=== PATIENT | male | born 1950 | race Caucasian/White ===

== ENCOUNTER 2016-08-18 14:31 | Inpatient (IN) | payer OTHER ==
[~2016-08-18] VITALS: Ht 170.2 cm; Wt 88.6 kg
[2016-08-18 15:33] LABS: HEMOGLOBIN 17.3 gm/dl (14.0-17.5); RED BLOOD COUNT 5.95 M/UL (4.20-5.50); WHITE BLOOD COUNT 23.4 K/UL (4.5-11.0)
[2016-08-18 15:56] LABS: BUN/CREATININE RATIO 18 (0-10)
[2016-08-18] MEDS ORDERED: ANTIVERT 25MG T25 MG PO (22:26)
[2016-08-19 04:16] LABS: HEMOGLOBIN 14.5 gm/dl (14.0-17.5); RED BLOOD COUNT 5.02 M/UL (4.20-5.50); WHITE BLOOD COUNT 11.4 K/UL (4.5-11.0)
[2016-08-19 04:52] LABS: BUN/CREATININE RATIO 21 (0-10)
[2016-08-19] MEDS ORDERED: PROTONIX20 MG PO (17:08)
[2016-08-19] MEDS ORDERED: ALUMINUM H320 MG/5 M PO (17:11)
== END 2016-08-19 17:40 | disposition home or self-care (01) | DRG 189 ==
LOC: ER1 14:31 → MED SURG 4 20:25 → ZEROF 20:25 → MED SURG 4 22:00
PROVIDERS: Emergency Medicine; ADMIT Internal Medicine
DX: J96.01 Acute respiratory failure with hypoxia (principal); J98.11 Atelectasis; K29.00 Acute gastritis without bleeding; D72.829 Elevated white blood cell count, unspecified; E86.0 Dehydration; J45.909 Unspecified asthma, uncomplicated; M19.90 Unspecified osteoarthritis, unspecified site; K76.0 Fatty (change of) liver, not elsewhere classified; K21.9 Gastro-esophageal reflux disease without esophagitis
CPT/HCPCS: 36415; 36600; 74022; 80053; 81001; 82550; 82553; 82803; 83036; 83605; 83690; 83874; 84484; 85025; 85027; 85379; 85610; 85730; 87040; 87086; 87338; 93005; 94664; 96365; 96367; 96375; 99284; C9113; J0696; J2270; J2405; J7030; J7050; Q9962